=== PATIENT | male | born 1955 | race Caucasian/White ===

== ENCOUNTER 2018-11-23 07:18 | Day surgery (SDC) | payer MEDICARE, OTHER ==
[~2018-11-23] VITALS: Ht 175.3 cm; Wt 73.6 kg
[~2018-11-23 07:18] MED LIST: BENICAR40 MG PO; FLUTICASONE PRO16 GM NS; LIBRAX CAPSULE1 CAP PO; NEXIUM40 MG PO; PRAVACHOL20 MG PO; SYMBICORT 16010.2 GM INH; ULTRAM50 MG; ZOLOFT50 MG PO; ZYLOPRIM100 MG PO
[2018-11-23] MEDS ORDERED: PROTONIX40 MG PO (08:38)
[2018-11-23] MEDS ORDERED: CARAFATE1 G PO (08:38)
[2018-11-23 08:48] VITALS: BP 127/69; Ht 175.3 cm; Wt 73.6 kg
[2018-11-23 08:53] LABS: HEMATOCRIT 41.2 % (42.0-54.0); HEMOGLOBIN 14.2 g/dL (13.5-17.5); MCH 33.1 pg (26.0-34.0); MCHC 34.5 g/dL (31.0-37.0); MEAN PLATELET VOLUME 9.5 fL (7.4-10.4); RBC 4.29 10x6/uL (4.20-6.10); WBC 6.4 10x3/uL (4.8-10.8)
--- NOTE | 2018-11-23 10:20 | NUR ---
DC INSTRUCTIONS GIVEN TO PT/FAMILY. STATE UNDERSTANDING. DC'D IV CATH FULLY INTACT.
--- NOTE | 2018-11-23 10:44 | NUR ---
PT LEFT UNIT VIA WC AT 1042
--- NOTE | 2018-11-23 12:06 | OP ---
PATIENT NAME: AMANDEEP KAYE MEDICAL RECORD: [id number] :51 LOCATION:[facility] ADMISSION DATE: SURGEON: SRINIVASA BECK DO DATE OF OPERATION: 11/23/2018 PROCEDURE: Colonoscopy with polypectomy, biopsies, and stool collection. INDICATIONS FOR PROCEDURE: Family history of cancer of the GI tract, history of colon polyps, change in bowel habits, diarrhea, generalized abdominal tenderness. SCOPE: Olympus video pediatric colonoscope. MEDICATIONS: Propofol 480 mg IV per anesthesia. WITHDRAWAL TIME: 22 minutes. ESTIMATED BLOOD LOSS: Minimal. COMPLICATIONS: None. FINDINGS: Informed consent was given. The patient was made comfortable with the above medication. After reaching an adequate level of sedation by slow IV push, the patient was placed on his left side. A digital rectal examination was performed and was normal. The endoscope was then advanced under direct visualization through the rectum, to the cecum, confirmed by the presence of the appendiceal orifice and ileocecal valve. The terminal ileum was briefly intubated and appeared normal. The endoscope was slowly withdrawn and the mucosa was carefully examined. The prep quality was good. There were 4 polyps visualized on today's examination. Two were located in the ascending colon. They were benign appearing and sessile and ranged in size from 3-4 mm in diameter. They were both removed using hot forceps in 1 piece and completely retrieved. In the sigmoid colon, there were two separate polyps, which were benign-appearing and sessile. They ranged in size from 2-4 mm in diameter. They were both removed using hot forceps. Retroflexion was performed in the rectum with a normal appearing rectal wall other than a possible stenosis/possibly scar from a previous procedure. There were no other abnormalities visualized on today's examination. Stool was collected to submit for further studies to rule out an infectious reason for change in bowel habits. Random biopsies were collected to submit for histopathology and to rule out the presence of microscopic colitis. The endoscope was withdrawn from the patient. The patient tolerated the procedure well and there were no complications. IMPRESSION: 1. Four polyps as described above. 2. Otherwise, normal colonoscopy. PLAN AND RECOMMENDATIONS: 1. Discharge home when recovery parameters are met. 2. Follow up biopsy specimen results. 3. High-fiber diet. 4. Continue current medications. 5. Trial of dicyclomine 20 mg t.i.d. p.r.n. loose stools or abdominal pain. 6. Follow up in GI clinic in a few weeks to discuss symptoms. 7. Recall colonoscopy in 2 years. OPERATIVE REPORT [id number] AMANDEEP KAYE TRANSINT:[id number] Voice Confirmation ID: [id number] DOCUMENT ID: [id number] SRINIVASA BECK DO at 1206 CC: [id number] DICTATION DATE: 11/23/18 0949 BLADE BONER: 11/23/18 1147 [facility] 11/23/18 [address] [place] [address]
== END 2018-11-23 10:42 | disposition home or self-care (01) ==
LOC: D.OPS 07:18
PROVIDERS: Anesthesiology; ATTEND Internal Medicine Gastroenterology
DX: K52.9 Noninfective gastroenteritis and colitis, unspecified (principal); D12.2 Benign neoplasm of ascending colon; D12.5 Benign neoplasm of sigmoid colon; Z86.010 Personal history of colon polyps; Z83.71 Family history of colonic polyps; Z01.812 Encounter for preprocedural laboratory examination

== ENCOUNTER 2018-12-26 05:39 | Day surgery (SDC) | payer MEDICARE, OTHER ==
[~2018-12-26] VITALS: Ht 175.3 cm; Wt 73.6 kg
[~2018-12-26 05:39] MED LIST changes: +CARAFATE1 G PO; +PROTONIX40 MG PO
[2018-12-26 06:01] LABS: HEMOGLOBIN 14.1 g/dL (13.5-17.5); MCH 32.8 pg (26.0-34.0); MCHC 34.4 g/dL (31.0-37.0); MCV 95.3 fL (80.0-100.0); MEAN PLATELET VOLUME 9.2 fL (7.4-10.4); RBC 4.3 10x6/uL (4.20-6.10); RDW 12.6 % (11.5-14.5); WBC 5.9 10x3/uL (4.8-10.8)
[2018-12-26 06:08] LABS: CALC OSMOLALITY 282 mosm/kg (275-300); CALCIUM 9.2 mg/dL (8.5-10.1); CARBON DIOXIDE 30.9 mmol/L (21.0-32.0); CHLORIDE - SERUM 104 mmol/L (98-107); POTASSIUM - SERUM 3.9 mmol/L (3.5-5.1); SODIUM 141 mmol/L (136-145); UREA NITROGEN 18 mg/dL (7-18); eGFR NON AFRICAN AMERICAN 80 mL/min (90-120)
[2018-12-26 06:11] LABS: GLUCOSE 95 mg/dL (74-106)
[2018-12-26] MEDS ORDERED: BENTYL10 MG PO (06:28)
[2018-12-26] MEDS ORDERED: BAYER CHEWABLE81 MG PO (06:29)
[2018-12-26] MEDS ORDERED: NITROSTAT0.4 MG SL (06:29)
[2018-12-26 06:36] VITALS: BP 149/91; Ht 175.3 cm; Wt 73.6 kg
--- NOTE | 2018-12-26 08:41 | NUR ---
DC INSTRUCTIONS GIVEN TO PT/FAMILY. STATE UNDERSTANDING. DC'D IV CATH FULLY INTACT.
--- NOTE | 2018-12-26 09:03 | NUR ---
PT LEFT UNIT VIA WC AT 0862
--- NOTE | 2018-12-26 09:55 | OP ---
PATIENT NAME: AMANDEEP KAYE MEDICAL RECORD: [id number] :51 LOCATION:[facility] ADMISSION DATE: SURGEON: SRINIVASA BECK DO DATE OF OPERATION: 12/26/2018 PROCEDURE: EGD with biopsies. INDICATIONS FOR PROCEDURE: Pain provoked by eating, gastroesophageal reflux disease, generalized abdominal tenderness, diarrhea, change in bowel habits. SCOPE: Olympus video gastroscope. MEDICATIONS: Propofol 250 mg IV per anesthesia. ESTIMATED BLOOD LOSS: Less than 2mL. COMPLICATIONS: None. FINDINGS AND DESCRIPTION OF PROCEDURE: Informed consent was given. The patient was made comfortable with the above medication. After reaching an adequate level of sedation by slow IV push, the patient was placed on his left side. The endoscope was advanced under direct visualization through the mouth to the second portion of the duodenum with ease. The entire esophagus appeared normal. At the GE junction, there were some changes consistent with LA class A reflux-induced esophagitis. The endoscope was advanced beyond the GE junction into the stomach and retroflexed to view the cardia, where a small sliding hiatal hernia was present. There were a few fundic gland benign appearing polyps located in the fundus and body of the stomach. In the body of the stomach, there was a larger polyp, which measured approximately 1 cm in diameter. It was relatively flat. Multiple cold forceps biopsies were taken prior to cauterization of the entire polyp. In the prepyloric region, there was another polyp, which was somewhat ulcerated on the tip. It was biopsied with cold forceps. The entire stomach had patchy areas of erythema and granularity consistent with gastritis. Random cold forceps biopsies were taken to submit for histopathology and to rule out the presence of H. pylori. The endoscope was advanced beyond the pylorus into the duodenum which appeared normal down to the second portion. Random cold forceps biopsies were taken to submit for histopathology. The endoscope was withdrawn from the patient. The patient tolerated the procedure well and there were no complications. IMPRESSION: 1. LA class A reflux-induced esophagitis. 2. Small sliding hiatal hernia. 3. Multiple benign appearing fundic gland type polyps. 4. Two polyps which were separately biopsied included a polyp in the body of the stomach on the lesser curvature. This was also cauterized extensively. There was a second polyp in the prepyloric region, which was biopsied. 5. Gastritis. PLAN AND RECOMMENDATIONS: 1. Discharge home when recovery parameters are met. 2. Follow up biopsy specimen results. 3. The patient may require a followup EGD based on pathology results for further intervention and/or biopsies. 4. Continue current medications including pantoprazole and Carafate. OPERATIVE REPORT [id number] AMANDEEP KAYE 5. Gastric emptying scan regarding the symptoms that are worsened with eating. TRANSINT:[id number] Voice Confirmation ID: [id number] DOCUMENT ID: [id number] SRINIVASA BECK DO at 0955 CC: [id number] DICTATION DATE: 12/26/18 08 MANAGER CHEMISTRY: 12/26/18 0853 [facility] 12/26/18 [address] [place] [address]
== END 2018-12-26 08:57 | disposition home or self-care (01) ==
LOC: D.OPS 05:39
PROVIDERS: Anesthesiology; ATTEND Internal Medicine Gastroenterology
DX: K21.0 Gastro-esophageal reflux disease with esophagitis (principal); K44.9 Diaphragmatic hernia without obstruction or gangrene; D3A.092 Benign carcinoid tumor of the stomach; K29.70 Gastritis, unspecified, without bleeding; Z01.812 Encounter for preprocedural laboratory examination

== ENCOUNTER 2019-01-09 10:27 | Day surgery (SDC) | payer MEDICARE, OTHER ==
[~2019-01-09] VITALS: Ht 175.3 cm; Wt 70.5 kg
[~2019-01-09 10:27] MED LIST changes: +BAYER CHEWABLE81 MG PO; +BENTYL10 MG PO; +NITROSTAT0.4 MG SL
[2019-01-09 11:15] LABS: CALC OSMOLALITY 282 mosm/kg (275-300); CALCIUM 9.6 mg/dL (8.5-10.1); CARBON DIOXIDE 30.8 mmol/L (21.0-32.0); CHLORIDE - SERUM 105 mmol/L (98-107); GLUCOSE 98 mg/dL (74-106); SODIUM 142 mmol/L (136-145); UREA NITROGEN 12 mg/dL (7-18); eGFR NON AFRICAN AMERICAN 80 mL/min (90-120)
[2019-01-09 11:19] LABS: BASOPHILS 0.4 % (0-2); EOSINOPHILS 0 % (0-7); HEMATOCRIT 39.6 % (42.0-54.0); HEMOGLOBIN 13.7 g/dL (13.5-17.5); LYMPHOCYTES 98.8 % (15-50); MCH 32.9 pg (26.0-34.0); MCHC 34.6 g/dL (31.0-37.0); MCV 95.2 fL (80.0-100.0); MEAN PLATELET VOLUME 9.4 fL (7.4-10.4); MONOCYTES 0 % (2-11); NEUTROPHILS 0.8 % (40-80); PLATELET COUNT 259 10x3/uL (130-400); RBC 4.16 10x6/uL (4.20-6.10); RDW 12.5 % (11.5-14.5); WBC 6.9 10x3/uL (4.8-10.8)
[2019-01-09 11:48] VITALS: BP 151/70; Ht 175.3 cm; Wt 70.5 kg
--- NOTE | 2019-01-11 18:24 | OP ---
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 INDICATIONS FOR PROCEDURE: Gastric carcinoid. SCOPE: Olympus video gastroscope. MEDICATIONS: Propofol 200 mg IV per anesthesia. ESTIMATED BLOOD LOSS: Minimal. COMPLICATIONS: None. FINDINGS: Informed consent was given. The patient was made comfortable with the above medication. After reaching an adequate level of sedation by slow IV push, the patient was placed on his left side. The endoscope was advanced under direct visualization through the mouth to the second portion of the duodenum. The entire esophagus appeared normal. At the GE junction, there was evidence of LA class A reflux-induced esophagitis. The endoscope was advanced beyond the GE junction into the stomach and retroflexed to view the cardia, where a small sliding hiatal hernia was present. In the stomach, there were diffuse changes of erythema and congestion consistent with gastritis. Cold forceps biopsies were taken separately from the fundus, the body of the stomach, and the antrum of the stomach to try to help classify the known carcinoid tumor further. The endoscope was advanced beyond the pylorus into the duodenum, which appeared normal down to the second portion. The endoscope was then withdrawn back into the stomach and attention was turned to the known carcinoid on the lesser curvature. It was approximately 1.2 cm in size. The margins were not as well defined as they were a few weeks ago when the initial procedure made the diagnosis. Eleview was used to inject submucosally underneath the tissue to attempt an endoscopic mucosal resection, snare removal. Multiple attempts were used with the snare unsuccessfully as the snare seemed to just roll over the tissue. At this time, hot forceps were used to take multiple specimens with. After adequate tissue was removed with the hot forceps, the forceps themselves were used to extensively cauterize the abnormal tissue. The endoscope was then withdrawn from the patient. The patient tolerated the procedure well and there were no complications. IMPRESSION: 1. LA class A reflux-induced esophagitis. 2. Small sliding hiatal hernia. 3. Multiple benign appearing fundic gland polyps. 4. Gastritis. 5. 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 Status post hot forceps removal and cauterization. PLAN AND RECOMMENDATIONS: 1. Discharge home when recovery parameters are met. 2. Follow up biopsy specimen results. OPERATIVE REPORT [id number] AMANDEEP KAYE 3. GERD diet and reflux precautions. 4. Continue current medications including pantoprazole 40 mg daily and sucralfate tablets 3 times a day. 5. Repeat EGD will be dependent on pathology results, but I anticipate a repeat in 4-6 weeks for further management of gastric carcinoid. 6. We will refer the patient to Dr. Adnerson for further evaluation, imaging studies, lab workup of gastric carcinoid. TRANSINT:[id number] Voice Confirmation ID: [id number] DOCUMENT ID: [id number] SRINIVASA BECK DO at 1824 CC: [id number] DICTATION DATE: 01/09/19 1324 MEDICARE CONTACT SPECIALIST: 01/09/19 1429 [facility] 01/09/19 [address] [place] [address]
== END 2019-01-09 14:50 | disposition home or self-care (01) ==
LOC: D.OPS 10:27
PROVIDERS: Anesthesiology; ATTEND Internal Medicine Gastroenterology
DX: D3A.092 Benign carcinoid tumor of the stomach (principal)

== ENCOUNTER → 2019-02-07 09:23 | Outpatient (CLI) | payer MEDICARE, OTHER ==
[2019-01-09 11:48] VITALS: BMI 22.9
== END | disposition home or self-care (01) ==
LOC: D.NM 01-30 09:59
PROVIDERS: ATTEND Legal Medicine
DX: C7A.092 Malignant carcinoid tumor of the stomach (principal)

== ENCOUNTER 2019-03-06 09:02 | Day surgery (SDC) | payer MEDICARE, OTHER ==
[~2019-03-06] VITALS: Ht 175.3 cm; Wt 72.7 kg
[2019-03-06 09:40] LABS: HEMATOCRIT 39.3 % (42.0-54.0); HEMOGLOBIN 13.5 g/dL (13.5-17.5); MCH 32.5 pg (26.0-34.0); MCHC 34.4 g/dL (31.0-37.0); MCV 94.7 fL (80.0-100.0); MEAN PLATELET VOLUME 9.4 fL (7.4-10.4); RBC 4.15 10x6/uL (4.20-6.10); RDW 12.6 % (11.5-14.5); WBC 6.4 10x3/uL (4.8-10.8)
[2019-03-06] MEDS ORDERED: DIOVAN80 MG PO (09:54)
[2019-03-06 10:00] VITALS: Ht 175.3 cm; Wt 72.7 kg
--- NOTE | 2019-03-06 13:41 | NUR ---
1203 IV DC'D. CATHETER INTACT. NO BLEEDING AT SITE. BANDAID APPLIED.
--- NOTE | 2019-03-07 18:01 | OP ---
PATIENT NAME: AMANDEEP KAYE MEDICAL RECORD: [id number] :51 LOCATION:[facility] ADMISSION DATE: SURGEON: SRINIVASA BECK DO DATE OF OPERATION: 03/06/2019 PROCEDURE: EGD with biopsies and gastric carcinoid removal. SCOPE: Olympus video gastroscope. MEDICATIONS: Propofol 200 mg IV per anesthesia. ESTIMATED BLOOD LOSS: Minimal. COMPLICATIONS: None. FINDINGS: Informed consent was given. The patient was made comfortable with the above medication. After reaching an adequate level of sedation by slow IV push, the patient was placed in his left side. The endoscope was advanced under direct visualization through the mouth to the second portion of the duodenum. Entire esophagus appeared normal. At the GE junction, there was evidence of LA class A reflux-induced esophagitis. The endoscope was advanced beyond the GE junction into the stomach and retroflexed to view the cardia, where a small sliding hiatal hernia was present. In the stomach, there were diffuse changes of erythema and congestion consistent with gastritis. Cold forceps biopsies were taken from the fundus, body of the stomach, and antrum of the stomach to submit for histopathology and to rule out the presence of H. pylori. The endoscope was advanced beyond the pylorus into the duodenum, which appeared normal to the second portion. The endoscope was then withdrawn back into the stomach and attention was turned to the site where the known carcinoid tumor was located on the lesser curvature. There was an obvious scar present from previous endoscopies and removal of the tumor, but there was no obvious abnormal carcinoid tumor remaining. Multiple cold forceps biopsies were taken from the perimeter as well as the central scar to look for remaining carcinoid tissue. After this, hot forceps were used to cauterize the entire area successfully. The endoscope was then withdrawn from the patient. The patient tolerated the procedure well and there were no complications. IMPRESSION: 1. LA class A reflux-induced esophagitis. 2. Small sliding hiatal hernia. 3. Multiple benign appearing fundic gland polyps. 4. Gastritis. 5. Known carcinoid tumor involving lesser curvature of the stomach, which was originally approximately 1.2 cm in size. Multiple cold forceps biopsies taken and hot forceps cauterization performed today. PLAN AND RECOMMENDATIONS: 1. Discharge home when recovery parameters are met. 2. Follow up biopsy specimen results. 3. GERD diet and reflux precautions. 4. Continue current medications including pantoprazole 40 mg daily and sucralfate tablets 3 times daily. 5. Repeat EGD will be dependent on pathology results. If there is any further carcinoid tissue present, we will anticipate a recall in 4-6 weeks. 6. We will arrange for a gastric emptying scan regarding the patient's ongoing OPERATIVE REPORT [id number] AMANDEEP KAYE symptoms of abdominal pain, which is worsened with eating as well as nausea and bloating. 7. Maintain appointments with Dr. Anderson for further co-management of gastric carcinoid. TRANSINT:[id number] Voice Confirmation ID: [id number] DOCUMENT ID: [id number] SRINIVASA BECK DO at 1801 CC: [id number] DICTATION DATE: 03/06/19 1059 UPSETTER SETTER UP: 03/06/19 1111 [facility] 03/06/19 [address] [place] [address]
== END 2019-03-06 12:15 | disposition home or self-care (01) ==
LOC: D.OPS 09:02
PROVIDERS: Anesthesiology; ATTEND Internal Medicine Gastroenterology
DX: D3A.092 Benign carcinoid tumor of the stomach (principal); K44.9 Diaphragmatic hernia without obstruction or gangrene; K21.0 Gastro-esophageal reflux disease with esophagitis; K29.70 Gastritis, unspecified, without bleeding

== ENCOUNTER → 2019-03-09 12:37 | Outpatient (CLI) | payer MEDICARE, OTHER ==
[2019-03-06 10:00] VITALS: BMI 23.6
[~2019-03-09 12:37] MED LIST changes: +DIOVAN80 MG PO
== END | disposition home or self-care (01) ==
LOC: D.NM 12:37
PROVIDERS: ATTEND Internal Medicine Gastroenterology
DX: K21.9 Gastro-esophageal reflux disease without esophagitis (principal); C7A.098 Malignant carcinoid tumors of other sites

== ENCOUNTER 2019-06-07 08:59 | Day surgery (SDC) | payer MEDICARE, OTHER ==
[~2019-06-07] VITALS: Ht 175.3 cm; Wt 72.3 kg
[2019-06-07 09:24] LABS: HEMOGLOBIN 12.7 g/dL (13.5-17.5); MCH 33.2 pg (26.0-34.0); MCHC 34.3 g/dL (31.0-37.0); MCV 96.6 fL (80.0-100.0); MEAN PLATELET VOLUME 8.8 fL (7.4-10.4); RBC 3.83 10x6/uL (4.20-6.10); RDW 13.3 % (11.5-14.5); WBC 5.1 10x3/uL (4.8-10.8)
[2019-06-07 09:29] LABS: ANION GAP 10.2 mmol/L (8-16); CALCIUM 9.2 mg/dL (8.5-10.1); CARBON DIOXIDE 32.8 mmol/L (21.0-32.0); CREATININE - SERUM 1.2 mg/dL (0.6-1.3)
[2019-06-07 10:41] VITALS: BP 129/78; Ht 175.3 cm; Wt 72.3 kg
--- NOTE | 2019-06-07 11:46 | NUR ---
DC INSTRUCTIONS GIVEN TO PT/FAMILY. STATE UNDERSTANDING. DC'D IV CATH FULLY INTACT.
--- NOTE | 2019-06-07 11:51 | NUR ---
PT LEFT UNIT VIA WC AT 1156
--- NOTE | 2019-06-07 16:30 | OP ---
PATIENT NAME: AMANDEEP KAYE MEDICAL RECORD: [id number] :51 LOCATION:[facility] ADMISSION DATE: SURGEON: SRINIVASA BECK DO DATE OF OPERATION: 06/07/2019 PROCEDURE: EGD. 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 SCOPE: Olympus video gastroscope. MEDICATIONS: Propofol 100 mg IV per anesthesia. ESTIMATED BLOOD LOSS: None. COMPLICATIONS: None. FINDINGS: Informed consent was given. The patient was made comfortable with the above medication. After reaching an adequate level of sedation by slow IV push, the patient was placed in his left side. The endoscope was advanced under direct visualization through the mouth to the second portion of the duodenum with ease. The entire esophagus appeared normal. At the GE junction, there were mild changes consistent with LA class A reflux-induced esophagitis. The endoscope was advanced beyond the GE junction into the stomach and retroflexed to view the cardia, where a small sliding hiatal hernia was present. There were multiple fundic gland polyps located in the fundus and body of the stomach. In the antrum, there was some erythema and granularity as well as congestion consistent with gastritis. Multiple biopsies in the past have shown no evidence of H. pylori, so no biopsies were taken today. The lesser curvature of the stomach was evaluated extensively due the past known gastric carcinoid tumor. Of note, biopsies on the last procedure were negative for any residual tissue. On today's examination, the exact site of the carcinoid tumor could not be identified. There were no obvious scars present to pinpoint the location as well. There was some overlying gastritis. No biopsies were taken today in light of the normal biopsies on the last examination and lack of identifying features on today's examination. The endoscope was advanced beyond the pylorus into the duodenum, which appeared normal down to the second portion. The endoscope was then withdrawn from the patient. The patient tolerated the procedure well and there were no complications. IMPRESSION: 1. LA class A reflux-induced esophagitis. 2. Small sliding hiatal hernia. 3. Multiple benign appearing fundic gland polyps. 4. Gastritis. 5. No residual evidence of known gastric carcinoid tumor involving the lesser curvature of the stomach. PLAN AND RECOMMENDATIONS: 1. Discharge home when recovery parameters are met. 2. Continue current diet and current medications. 3. Continue follow up with Dr. Anderson for surveillance of carcinoid tumor and octreotide injections. 4. We will plan on a repeat EGD in approximately 1 year for continued OPERATIVE REPORT [id number] AMANDEEP KAYE surveillance. TRANSINT:[id number] Voice Confirmation ID: [id number] DOCUMENT ID: [id number] SRINIVASA BECK DO at 1630 CC: [id number] DICTATION DATE: 06/07/19 1114 TRANSPORTATION AGENT: 06/07/19 1233 [facility] 06/07/19 [facility] [address] [place] [address]
== END 2019-06-07 11:56 | disposition home or self-care (01) ==
LOC: D.OPS 08:59
PROVIDERS: Anesthesiology; ATTEND Internal Medicine Gastroenterology
DX: K21.0 Gastro-esophageal reflux disease with esophagitis (principal); K44.9 Diaphragmatic hernia without obstruction or gangrene; K31.7 Polyp of stomach and duodenum; K29.70 Gastritis, unspecified, without bleeding; Z85.028 Personal history of other malignant neoplasm of stomach